=== PATIENT | male | born 1950 | race Caucasian/White ===

== ENCOUNTER 2023-01-05 08:17 | Outpatient (RCR) | payer MEDICARE, OTHER ==
[~2023-01-05 08:17] MED LIST: ALPR0.2550 PO; ASP81TEC PO; CEPH-38 PO; HYDR-3583 PO; LISI1TAB PO; MULT-608 PO
== END 2023-01-06 | disposition home or self-care (01) ==
PROVIDERS: ATTEND Orthopaedic Surgery
DX: Z09 Encounter for follow-up examination after completed treatment for conditions other than malignant neoplasm (principal); I10 Essential (primary) hypertension; Z96.662 Presence of left artificial ankle joint

== ENCOUNTER 2023-01-29 11:06 | Outpatient (RCR) | payer MEDICARE, OTHER | END 2023-01-29 13:00 | disposition home or self-care (01) | PROVIDERS: ATTEND Orthopaedic Surgery | DX: Z09 Encounter for follow-up examination after completed treatment for conditions other than malignant neoplasm (principal); I10 Essential (primary) hypertension; Z96.662 Presence of left artificial ankle joint ==